=== PATIENT | male | born 1980 | race Caucasian/White ===

== ENCOUNTER 2019-08-28 12:06 | Emergency (ER) | payer SELFPAY ==
[2019-08-28 12:31] VITALS: BP 129/85; PULSE 109; RESP 20; TEMP 37.5; O2SAT 98
--- NOTE | 2019-08-28 12:51 | ED.GENADULT ---
HPI - General Adult General Chief complaint: Upper Respiratory Infection Stated complaint: Cold/Flu Time Seen by Provider: 08/28/19 12:51 Source: patient and RN notes reviewed Mode of arrival: ambulatory Limitations: no limitations History of Present Illness HPI narrative: 38-year-old deaf male presents with complaints of sore throat, body aches, and cough for 1 day. No treatment. Dry cough/intermittent productive cough (green phlegm). No high fevers, drooling, neck or throat swelling. Pain is bilateral. Hurts to swallow. Rhinorrhea and nasal congestion. No voice change. No nausea, vomiting, or abdominal pain. Tolerating liquids well. Denies chills, dyspnea, difficulty swallowing, jaw pain, dental pain, facial pain, foreign body sensation, and rash. Remains active. Some parts of this dictation were generated by voice recognition software and may contain typographical and/or grammatical inaccuracies. Related Data Allergies Allergy/AdvReac Type Severity Reaction Status Date / Time morphine Allergy Unknown aggitated Verified 08/28/19 12:45 tramadol Allergy Unknown Unknown Verified 08/28/19 12:45 Shrimp Allergy Intermediate swelling Uncoded 12/18/17 15:29 Review of Systems Review of Systems: Narrative: CONSTITUTIONAL: Complains of tactile fever. Denies chills, sweats. EYES: Denies visual changes, redness, discharge. ENT: Denies otalgia. Complains of sore throat, congestion, rhinorrhea. Denies otalgia. CARDIOVASCULAR: Denies chest pain, palpitations, edema. RESPIRATORY: Denies dyspnea, wheezing. Complains of dry cough/intermittent productive cough. GASTROINTESTINAL: Denies abdominal pain, nausea, vomiting, diarrhea. GENITOURINARY: Denies dysuria, hematuria, abnormal discharge SKIN: Denies rash or itching. MUSCULOSKELETAL: Denies acute back pain, joint pain, or myalgia. NEUROLOGIC: Denies numbness or focal weakness. PSYCHIATRIC: Denies anxiety or depression PMFSH Past Medical History Medical History (Updated 08/30/19 @ 01:44 by COBY Geiger) Deaf Comments At time of signature, agree with nurse past medical, surgical, social, and family history. There is no relevant family history pertinent to the presenting complaint. Exam Narrative: Exam Narrative: GENERAL: This is a well-nourished, well-developed patient, in no apparent distress. Speaks in full sentences without deficits and ambulates with steady gait without dyspnea. HEAD: normocephalic, atraumatic. EYES: PERRL. Sclera clear/white. Vision is grossly intact. EARS: External ears normal, auditory canals clear and without drainage, TMs normal without perforation. Hearing grossly intact. NOSE: External nose normal with no obvious nasal discharge, nares with mild-moderate redness and enlarge turbinates, LT wrose, clear rhinorrhea. Mouth: moist mucous membranes. THROAT: Mucous membranes moist, posterior pharynx with moderate erythema and mild exudate to LT tonsil only both tonsils +1, normal tonsils, no drainage, no concern for Peritonsillar abscess. No drooling, trismus, or neck swelling. NECK: Neck supple, non-tender without lymphadenopathy, masses or thyromegaly. CARDIOVASCULAR: Regular rate and rhythm without murmurs, gallops, or rubs. RESPIRATORY: Clear to auscultation. Breath sounds equal bilaterally. No wheezes, rales, or rhonchi. GASTROINTESTINAL: Abdomen soft, non-tender, nondistended. Bowel sounds are active. No hepato-splenomegaly, or palpable masses. No guarding. SKIN: warm, intact with no suspicious lesions or rash, good texture and turgor. NEURO: awake, alert, and oriented to person, place and time. There were no obvious focal neurologic abnormalities. EXTREMITIES: No clubbing, cyanosis, or edema. Aminah Coma Scale Eye Opening: Spontaneous 4 [place] Coma Scale Motor: Obeys Commands 6 Aminah Coma Scale Verbal: Oriented 5 Course Vital Signs Vital signs: Vital Signs Temperature 37.5 C 08/28/19 12:31 Pulse Rate 109 H 08/28/19 12
== END 2019-08-28 13:05 | disposition home or self-care (01) ==
PROVIDERS: Emergency Provider Nurse Practitioner Family
DX: J02.0 Streptococcal pharyngitis (principal); H91.90 Unspecified hearing loss, unspecified ear
CPT/HCPCS: 87880; 99213; G0463

== ENCOUNTER 2021-11-25 13:48 | Emergency (ER) | payer BC, SELFPAY ==
[2021-11-25 13:55] VITALS: BP 155/89; PULSE 82; RESP 16; TEMP 36.8; O2SAT 99
--- NOTE | 2021-11-25 13:59 | ED.ANXIETY ---
HPI - Anxiety General Stated Complaint: panic attacks sob Time Seen by Provider: 11/25/21 13:59 Source: patient and RN notes reviewed History of Present Illness HPI narrative: Patient is a 41-year-old male who presents the urgent care with complaints of panic attacks, anxiety and depression. Patient states that it started last night after he got the news of his mother having cancer. Patient states that he has had some chest tightness and is unable to use eat due to the extreme anxiety. Patient denies of any history of anxiety or panic attacks. No other acute complaints. Patient is visibly upset. Patient aware of the plan of care. Some parts of this dictation were generated by voice recognition software and may contain typographical and/or grammatical inaccuracies. Related Data Allergies Allergy/AdvReac Type Severity Reaction Status Date / Time morphine Allergy Intermediate aggitated Verified 11/25/21 14:11 tramadol Allergy Intermediate Swelling Verified 11/25/21 14:11 Shrimp Allergy Intermediate swelling Uncoded 12/18/17 15:29 Review of Systems Review of Systems: CONSTITUTIONAL: Denies fever, chills, or sweats. EYES: Denies visual changes, redness, or discharge. ENT: Denies rhinorrhea, congestion, sore throat, or otalgia. CARDIOVASCULAR: Denies chest pain, palpitations, or edema. RESPIRATORY: Denies cough or dyspnea. GASTROINTESTINAL: Denies abdominal pain, nausea, vomiting, or diarrhea. GENITOURINARY: Denies dysuria or hematuria. SKIN: Denies rash or itching. MUSCULOSKELETAL: Denies back pain, joint pain, or myalgia. NEUROLOGIC: Denies headache, numbness, or weakness. PSYCHIATRIC: Reports of anxiety and panic attacks All other systems reviewed are negative, except as documented in HPI. [facility] Past Medical History Medical History (Updated 11/25/21 @ 14:13 by COBY Bagley) Deaf Comments At the time of my signature, I reviewed and agree with the nursing past medical, surgical, social, and family history. There is no relevant family history pertinent to the patient complaint. Exam Narrative: GENERAL: This is a well-nourished, well-developed patient. Visibly tearful and anxious HEAD: normocephalic, atraumatic. EYES: PERRL. Sclera clear/white. Vision is grossly intact. EARS: External ears normal NOSE: External nose normal with no obvious nasal discharge, nares without redness, no rhinorrhea. THROAT: Mucous membranes moist NECK: Neck supple CARDIOVASCULAR: Regular rate and rhythm without murmurs, gallops, or rubs. RESPIRATORY: Clear to auscultation. Breath sounds equal bilaterally. No wheezes, rales, or rhonchi. SKIN: warm, intact with no suspicious lesions or rash, good texture and turgor. NEURO: awake, alert, and oriented to person, place and time. There were no obvious focal neurologic abnormalities. EXTREMITIES: No clubbing, cyanosis, or edema. Course Course Level of Care: Express Care Visit Vital Signs Vital signs: Vital Signs Temperature 98.2 F 11/25/21 13:55 Pulse Rate 82 11/25/21 13:55 Respiratory Rate 16 11/25/21 13:55 Blood Pressure 155/89 H 11/25/21 13:55 Pulse Oximetry 99 11/25/21 13:55 Temperature 98.2 F 11/25/21 13:55 Pulse Rate 82 11/25/21 13:55 Respiratory Rate 16 11/25/21 13:55 Blood Pressure 155/89 H 11/25/21 13:55 Pulse Oximetry 99 11/25/21 13:55 Reviewed-patient is informed that they may have pre-hypertension or hypertension based on a blood pressure reading in the department. I recommend the patient call the primary care provider listed on their discharge instructions or a physician of their choice this week to arrange follow-up for further evaluation of possible pre-hypertension or hypertension. MDM - Anxiety MDM Narrative Medical decision making narrative: Advised the patient to obtain a PCP, using the referred PCPs from your visit today. Practice deep breathing. Use the prescription medication as needed for anxiety. Do not take any more than 3 dose
== END 2021-11-25 14:15 | disposition home or self-care (01) ==
PROVIDERS: Emergency Provider Nurse Practitioner Family
DX: F41.9 Anxiety disorder, unspecified (principal); H91.90 Unspecified hearing loss, unspecified ear
CPT/HCPCS: 99213; G0463

== ENCOUNTER 2023-02-25 13:20 | Emergency (ER) | payer BC, SELFPAY ==
--- NOTE | 2023-02-25 13:30 | ED.GENADULT ---
HPI - General Adult General Chief complaint: Unspecified Stated complaint: Heat Exhaustion/ Legs/Feet Pain Time Seen by Provider: 02/25/23 13:32 Source: patient, RN notes reviewed and old records reviewed Mode of arrival: ambulatory Limitations: no limitations History of Present Illness HPI narrative: 42-year-old male presents to the [facility] stating that he has cramps in his legs. States that the water he has been drinking at work as bad. States that they only give him 2 bottles of Gatorade every night. Symptoms started this morning when he got off of work at 3:30 a.m.. Patient states he has been hydrating well. Denies abdominal pain, chest pain, shortness of breath. denies any nausea or vomiting. Denies any diarrhea. No urinary symptoms. Requesting a work note patient is agitated patient is upset about work. Treatments prior to arrival: other ( Water and Gatorade) Related Data Allergies Allergy/AdvReac Type Severity Reaction Status Date / Time morphine Allergy Intermediate aggitated Verified 11/25/21 14:11 tramadol Allergy Intermediate Swelling Verified 11/25/21 14:11 Shrimp Allergy Intermediate swelling Uncoded 12/18/17 15:29 Review of Systems Review of Systems: All systems reviewed & are unremarkable except as noted in HPI and below Constitutional: Constitutional: Reports as per HPI Eyes: Eyes: Reports no additional eye complaints ENT: Reports system reviewed and no additional complaints, except as documented Cardiovascular: Cardiovascular: Reports no additional cardiovascular complaints, Denies chest pain and Denies dyspnea Respiratory: Respiratory: Reports no additional respiratory complaints, Denies chest congestion, Denies cough and Denies dyspnea Gastrointestinal: Gastrointestinal: Reports no additional gastrointestinal complaints, Denies abdominal pain, Denies nausea and Denies vomiting Musculoskeletal: Musculoskeletal: Reports as per HPI and Reports muscle cramps Integumentary/Breasts: Skin/Breast: Reports system reviewed and no additional complaints, except as docu Neurologic: Reports system reviewed and no additional complaints, except as documented Psychiatric: Psychiatric: Reports no additional psychiatric complaints Allergic/Immunologic: Allergic/Immunologic: Reports no additional allergic/immunologic complaints [facility] Past Medical History Medical History Deaf Social History Social History Substance use type: does not use Comments At the time of my signature, I reviewed and agree with the nursing past medical, surgical, social, and family history. There is no relevant family history pertinent to the patient complaint. Exam Const: General: cooperative, healthy appearing, comfortable, no acute distress, well developed, alert and well nourished Nutritional Appearance: well nourished and obese Orientation/consciousness: patient oriented x3 Limitations: no limitations HENMT: Head: normal to inspection Ears: hearing grossly normal bilaterally and external ears normal Face/Nose/Sinus: Normal external nose present, Normal nares present, Normal nasal mucous membranes and turbinates present and normal facial exam Face and sinus: normal facial exam Mouth: Yes Normal oral and palatal mucosa present, Yes lip normal and Yes moist mucous membranes Eyes: General: appearance normal, both eyes and all related structures Alignment and Position: alignment normal Periorbital: periorbital findings normal Pupils: Equal, round and reactive pupils present EOM: EOMs intact bilaterally Neck: Neck: normal visual inspection, full ROM, no lymphadenopathy and no meningeal signs Chest: Chest palpation & inspection: normal inspection of the chest Resp: Effort & Inspection: normal respiratory effort and able to speak in complete sentences Auscultation: clear to auscultation bilaterally, no crackles, no
[2023-02-25 13:31] VITALS: BP 144/84; PULSE 78; RESP 16; TEMP 36.6; O2SAT 98
== END 2023-02-25 13:45 | disposition home or self-care (01) ==
PROVIDERS: Emergency Provider Nurse Practitioner
DX: R25.2 Cramp and spasm (principal); H91.90 Unspecified hearing loss, unspecified ear
CPT/HCPCS: 99211; G0463

== ENCOUNTER 2024-01-10 15:49 | Emergency (ER) | payer BC, SELFPAY ==
[2024-01-10 15:58] VITALS: BP 144/72; PULSE 80; RESP 20; TEMP 37.2; O2SAT 97
--- NOTE | 2024-01-10 16:24 | ED.URI ---
HPI - URI/Sore Throat General Chief Complaint: Upper Respiratory Infection Stated Complaint: Sinus Pain Source: patient, RN notes reviewed and old records reviewed Mode of arrival: ambulatory Limitations: no limitations History of Present Illness HPI Narrative: 43 year old male presents to [facility] who is deaf but reads lips well. He reports that he has been having a lot of sinus problems for the past 4 days with complaints of sinus congestion, sinus headache pain, feels stuffed up. Patient reports that he has been taking some Ibuprofen for his facial pain and headache. Patient reports that he has history of allergies and sinus infections. Patient states that he called off work today he felt so bad and needs work note. MD elicited complaint: rhinorrhea, nasal congestion, sinus pain and other (headache) Pertinent past history: pneumonia, sinusitis and seasonal allergies Onset (ago): day(s) (4) Consistency: progressively worsening Severity: moderate Pain scale (0-10): 6 Description of mucous: yellow Able to tolerate fluids by mouth: Yes Associated symptoms: headache, rhinorrhea and nasal congestion Treatments prior to arrival: ibuprofen Related Data Allergies Allergy/AdvReac Type Severity Reaction Status Date / Time morphine Allergy Intermediate aggitated Verified 11/25/21 14:11 tramadol Allergy Intermediate Swelling Verified 11/25/21 14:11 Shrimp Allergy Intermediate swelling Uncoded 12/18/17 15:29 Review of Systems Review of Systems: CONSTITUTIONAL: Denies malaise, chills,positive for sweats, unknown if fever. EYES: Denies visual changes, redness, or discharge. ENT: Reports rhinorrhea, congestion, sinus pain,no otalgia and no sore throat. CARDIOVASCULAR: Denies chest pain, palpitations, or edema. RESPIRATORY: Reports no acute cough.? Denies dyspnea. GASTROINTESTINAL: Denies abdominal pain, nausea, vomiting, diarrhea SKIN: Denies rash or itching. MUSCULOSKELETAL: Denies myalgia. NEUROLOGIC:reports headache. All systems reviewed & are unremarkable except as noted in HPI and below PMFSH Past Medical History Medical History (Updated 01/11/24 @ 16:11 by Liat Cortez NP) Abscess of thigh Anxiety Deaf Fracture, jaw Seasonal allergies Social History Social History Smoking packs per day: 0.5 Smoking cigarettes per day: 10.0 Years smoked: 15 Smoking pack-years: 7.50 Smoking status: Current every day smoker Tobacco type: cigarettes Alcohol use details: reports no alcohol use Substance use type: does not use Gender identity (if verbalized by the patient): Male Comments At time of signature, agree with nursing past medical, surgical, social and family history. There is no relevant family history pertinent to the presenting complaint Exam Narrative: GENERAL: Well-appearing, well-nourished, and in no acute distress. HEAD: Normocephalic EYES: PERRLA, conjunctivae clear ENT: Nares red, turbinates edematous and erythematous, clear to light yellow discharge, facial pressure and headache, Mucous membranes moist. TM pearly lozano with dull light reflex bilaterally; no tragal tenderness, deaf. Oropharynx erythematous without lesions. Tonsils not enlarged and without exudate, no drooling, no hoarseness, no trismus, uvula midline.post nasal discharge NECK: Supple. No lymphadenopathy CHEST: Clear to auscultation, breath sounds equal. No wheezing, rhonchi, rales, or stridor. No respiratory distress, speaks in full sentences.no acute cough, SAO2 97% on room air HEART: Regular rate and rhythm. No murmur heard. SKIN: Warm, dry, no rash. NEURO: Alert and oriented x3. PSYCH: Normal mood and affect Course Course Emergency Course: Patient is aware of diagnosis, understands and agrees to treatment plan.? Anticipatory guidance given.? Patient agrees to follow-up as directed and is aware of reasons to seek care at the emergen
== END 2024-01-10 16:37 | disposition home or self-care (01) ==
PROVIDERS: Emergency Provider Registered Nurse
DX: J32.9 Chronic sinusitis, unspecified (principal); F17.210 Nicotine dependence, cigarettes, uncomplicated; H91.93 Unspecified hearing loss, bilateral
CPT/HCPCS: 99213; G0463